=== PATIENT | female | born 1950 | race Caucasian/White ===

== ENCOUNTER 2017-10-07 19:03 | Emergency (ER) | payer MEDICAID, MEDICARE, OTHER ==
[~2017-10-07] VITALS: Ht 162.6 cm; Wt 69.9 kg
--- NOTE | 2017-10-07 19:03 | NUR ---
BIB [facility] C/O ABRASIONS TO R FOREARM S/P GLF NO SOB OR PAIN AT THIS MOMENT. VSS NAD. WILL CONTINUE TO MONITOR FOR ANY CHANGES DURING THE SHIFT.
[2017-10-07 19:48] LABS: BASOPHILS # (AUTO) 0.1 /CMM (0.0-0.2); BASOPHILS % (AUTO) 0.8 % (0.0-2.0); EOSINOPHILS % (AUTO) 0.6 % (0.0-6.0); HEMATOCRIT 34 % (33-45); HEMOGLOBIN 11.9 g/dL (11.5-14.8); LYMPHOCYTES # (AUTO) 0.7 /CMM (0.8-4.8); LYMPHOCYTES % (AUTO) 9.7 % (20.0-44.0); MEAN CORPUSCULAR HGB CONC 35 g/dl (31.0-36.0); MEAN CORPUSCULAR VOLUME 89 fL (82-100); MONOCYTES # (AUTO) 0.5 /CMM (0.1-1.30); MONOCYTES % (AUTO) 6.9 % (2.0-12.0); NEUTROPHILS # (AUTO) 5.9 /CMM (1.8-8.9); PLATELET COUNT (AUTO) 257 /CMM (150-450); RDW COEFFICIENT OF VARIATION 13.8 (11.5-15.0); WHITE BLOOD COUNT (AUTO) 7.2 K/uL (4.3-11.0)
--- NOTE | 2017-10-07 19:53 | NUR ---
CALLED [facility] AND LEFT A VOICEMAIL
[2017-10-07 20:02] LABS: ALANINE AMINOTRANSFERASE 24 U/L (12-78); ALBUMIN 3.8 g/dL (3.4-5.0); ALKALINE PHOSPHATASE 111 U/L (46-116); ASPARTATE AMINOTRANSFERASE 25 U/L (15-37); BILIRUBIN,TOTAL 0.5 mg/dL (0.2-1.0); CALCIUM, SERUM 8.5 mg/dL (8.5-10.1); CARBON DIOXIDE 26 mmol/L (21-32); CHLORIDE 91 mmol/L (98-107); CREATININE 0.6 mg/dL (0.6-1.3); GLUCOSE 116 mg/dL (74-106); POTASSIUM 3.9 mmol/L (3.5-5.1); SODIUM SERUM 125 mmol/L (136-145); TOTAL PROTEIN, SERUM 6.2 g/dL (6.4-8.2); UREA NITROGEN, BLOOD 9 mg/dL (7-18)
[2017-10-07 20:21] LABS: TROPONIN I < 0.017 ng/mL (0.00-0.056)
--- NOTE | 2017-10-07 20:28 | NUR ---
CALLED C[facility] AGAIN
[2017-10-07 21:11] LABS: ACETAMINOPHEN 0 ug/ml (10-30); ALCOHOL, BLOOD < 3 mg/dL (0-0); SALICYLATE 1.5 mg/dL (2.8-20.0)
--- NOTE | 2017-10-07 21:27 | NUR ---
CALLED [facility] FOR TO
--- NOTE | 2017-10-07 21:45 | NUR ---
WALKED PT TO BATHROOM. UNABLE TO GIVE URINE SAMPLE
[2017-10-07] MEDS: IV NS 0.9% 1,000 ML BAG IV STA (22:04)
--- NOTE | 2017-10-07 22:32 | NUR ---
Call from [facility] , accepted by Dr Good. # for report [phone]. ETA 2315 Addendum: 10/07/17 at 2247 by CBATACLAN Call from [facility] , accepted by Dr Good at [facility]. # for report [phone]. ETA 2314
--- NOTE | 2017-10-07 22:39 | NUR ---
REPORT GIVEN TO LINDA SEVERINO
[2017-10-07 23:20] VITALS: BP 156/105
== END 2017-10-07 23:25 | disposition short-term general hospital (02) ==
LOC: ER 19:04
DX: S09.8XXA Other specified injuries of head, initial encounter (principal); S50.811A Abrasion of right forearm, initial encounter; E87.1 Hypo-osmolality and hyponatremia; F25.9 Schizoaffective disorder, unspecified; I10 Essential (primary) hypertension; G89.29 Other chronic pain; Z91.013 Allergy to seafood; Z91.018 Allergy to other foods; Z88.6 Allergy status to analgesic agent; Z88.0 Allergy status to penicillin; W18.30XA Fall on same level, unspecified, initial encounter; Y93.89 Activity, other specified; Y92.89 Other specified places as the place of occurrence of the external cause; Y99.8 Other external cause status
CPT/HCPCS: 36415; 70450-TC; 71045-TC; 73130-TC; 80053-TC; 82962-TC; 84484-TC; 85025-TC; A4606; G0480; J7030; Z7610

== ENCOUNTER 2018-01-03 15:33 | Emergency (ER) | payer OTHER, MEDICAID ==
[~2018-01-03] VITALS: Ht 162.6 cm; Wt 59.4 kg
[2018-01-03] MEDS ORDERED: IV NS 0.9% 1,000 ML BAG IV ONE (16:00)
[2018-01-03 16:19] LABS: BASOPHILS # (AUTO) 0.1 /CMM (0.0-0.2); BASOPHILS % (AUTO) 0.9 % (0.0-2.0); EOSINOPHILS % (AUTO) 0.8 % (0.0-6.0); HEMATOCRIT 34 % (33-45); HEMOGLOBIN 11.6 g/dL (11.5-14.8); LYMPHOCYTES % (AUTO) 16.7 % (20.0-44.0); MEAN CORPUSCULAR HEMOGLOBIN 32 PG (26.0-33.0); MEAN CORPUSCULAR HGB CONC 35 g/dl (31.0-36.0); MEAN CORPUSCULAR VOLUME 92 fL (82-100); MONOCYTES # (AUTO) 0.3 /CMM (0.1-1.30); MONOCYTES % (AUTO) 5.8 % (2.0-12.0); NEUTROPHILS # (AUTO) 4.5 /CMM (1.8-8.9); NEUTROPHILS % (AUTO) 75.8 % (43.0-81.0); PLATELET COUNT (AUTO) 234 /CMM (150-450); RDW COEFFICIENT OF VARIATION 13.7 (11.5-15.0); RED BLOOD CELL COUNT(AUTO) 3.68 MIL/uL (4.0-5.2); WHITE BLOOD COUNT (AUTO) 5.9 K/uL (4.3-11.0)
[2018-01-03 16:34] LABS: ALBUMIN 3.9 g/dL (3.4-5.0); BILIRUBIN,DIRECT 0.1 mg/dL (0.0-0.2); BILIRUBIN,TOTAL 0.4 mg/dL (0.2-1.0); CALCIUM, SERUM 8.7 mg/dL (8.5-10.1); CREATININE 1.6 mg/dL (0.6-1.3); POTASSIUM 3.7 mmol/L (3.5-5.1); TOTAL PROTEIN, SERUM 6.3 g/dL (6.4-8.2)
--- NOTE | 2018-01-03 17:24 | NUR ---
CALLED [facility] SPOKE WITH SANDRA EXPECTING A CALL BACK FROM A [facility]
--- NOTE | 2018-01-03 18:00 | NUR ---
IV removed. Catheter intact and site benign. Pressure and 4x4 applied to site. No bleeding noted.
--- NOTE | 2018-01-03 18:23 | NUR ---
Pt ambulatory with a steady gait.
[2018-01-03 18:26] VITALS: BP 128/81
--- NOTE | 2018-01-03 18:46 | NUR ---
Patient discharged to home in stable condition. Written and verbal after care instructions given. Patient verbalizes understanding of instruction.
== END 2018-01-03 18:47 | disposition home or self-care (01) ==
LOC: ER 15:36
DX: E86.0 Dehydration (principal); E87.1 Hypo-osmolality and hyponatremia; I10 Essential (primary) hypertension; F31.9 Bipolar disorder, unspecified; G89.29 Other chronic pain; Z88.0 Allergy status to penicillin; Z91.013 Allergy to seafood; Z91.018 Allergy to other foods; Z88.6 Allergy status to analgesic agent
CPT/HCPCS: 36415; 80048; 80076; 85025; 96360; 99284; A4606; J7030; Z7610

== ENCOUNTER 2018-01-04 18:11 | Emergency (ER) | payer OTHER, MEDICAID ==
[~2018-01-04] VITALS: Ht 149.9 cm; Wt 49.9 kg
[2018-01-04 21:33] LABS: BASOPHILS % (AUTO) 0.4 % (0.0-2.0); EOSINOPHILS % (AUTO) 0.1 % (0.0-6.0); HEMATOCRIT 36 % (33-45); HEMOGLOBIN 12.4 g/dL (11.5-14.8); MEAN CORPUSCULAR HEMOGLOBIN 32 PG (26.0-33.0); MEAN CORPUSCULAR HGB CONC 35 g/dl (31.0-36.0); MEAN CORPUSCULAR VOLUME 91 fL (82-100); MONOCYTES # (AUTO) 1.1 /CMM (0.1-1.30); MONOCYTES % (AUTO) 9.6 % (2.0-12.0); NEUTROPHILS # (AUTO) 9.8 /CMM (1.8-8.9); NEUTROPHILS % (AUTO) 81.9 % (43.0-81.0); PLATELET COUNT (AUTO) 252 /CMM (150-450); RDW COEFFICIENT OF VARIATION 13.7 (11.5-15.0); RED BLOOD CELL COUNT(AUTO) 3.91 MIL/uL (4.0-5.2); WHITE BLOOD COUNT (AUTO) 11.9 K/uL (4.3-11.0)
--- NOTE | 2018-01-04 21:33 | NUR ---
PT IS IN CT.
--- NOTE | 2018-01-04 21:39 | NUR ---
CALLED [facility], PRESENTED PT, AWAITING CALL BACK FROM [facility]
[2018-01-04 22:01] LABS: CALCIUM, SERUM 8.8 mg/dL (8.5-10.1); CREATININE 0.7 mg/dL (0.6-1.3); POTASSIUM 3.7 mmol/L (3.5-5.1)
[2018-01-04 22:08] LABS: ALBUMIN 4.1 g/dL (3.4-5.0); BILIRUBIN,DIRECT 0.2 mg/dL (0.0-0.2); BILIRUBIN,TOTAL 0.9 mg/dL (0.2-1.0); TOTAL PROTEIN, SERUM 6.4 g/dL (6.4-8.2)
[2018-01-04 22:20] LABS: INR 1.11 (0.87-1.13)
--- NOTE | 2018-01-04 22:47 | NUR ---
CLEANED PT AND NEW DIAPER APPLIED.
[2018-01-04] MEDS ORDERED: TDAP [DIPH/PERTUSSIS/TET] 0.5 ML VIAL IM ONE (23:00)
--- NOTE | 2018-01-04 23:23 | NUR ---
XRAY DONE AT THE BEDSIDE.
--- NOTE | 2018-01-04 23:27 | NUR ---
[facility] [id number] MD Kody Mcdermott [phone] eta 2401
[2018-01-04] MEDS ORDERED: IV NS 0.9% 250 ML BAG IV ONE (23:30)
[2018-01-04 23:56] VITALS: BP 161/92
[2018-01-05] MEDS ORDERED: MORPHINE SULFATE INJ 4 MG/ML DISP.SYRIN ONE (00:15)
--- NOTE | 2018-01-05 00:18 | NUR ---
REPORT GIVEN TO LEONORA FISHER
--- NOTE | 2018-01-05 00:18 | NUR ---
CALLING REPORT TO [facility] RM [id number]
[2018-01-05] MEDS ORDERED: MORPHINE SULFATE INJ 2 MG/ML DISP.SYRIN IV ONE (00:30)
--- NOTE | 2018-01-05 00:37 | NUR ---
PT LEFT VIA AMBULANCE.
== END 2018-01-05 00:38 ==
LOC: ER 18:16
DX: S06.5X0A Traumatic subdural hemorrhage without loss of consciousness, initial encounter (principal); S80.02XA Contusion of left knee, initial encounter; R63.1 Polydipsia; R53.1 Weakness; I10 Essential (primary) hypertension; G89.29 Other chronic pain; F31.9 Bipolar disorder, unspecified; Z88.0 Allergy status to penicillin; Z88.6 Allergy status to analgesic agent; Z91.013 Allergy to seafood; Z91.018 Allergy to other foods; Z60.2 Problems related to living alone; W18.39XA Other fall on same level, initial encounter; Y93.89 Activity, other specified; Y92.89 Other specified places as the place of occurrence of the external cause; Y99.8 Other external cause status
CPT/HCPCS: 36415; 70450; 71045; 73560; 80048; 80076; 82962; 85025; 85730; 93005; 99291; A4606; J2270; J7050; Z7610